=== PATIENT | female | born 1995 | race Caucasian/White ===

== ENCOUNTER 2025-01-21 16:26 | Emergency (ER) | payer MEDICAID ==
[2025-01-21] VITALS (9 sets, daily range): BP systolic 108–127; BP diastolic 73–86
[~2025-01-21] VITALS: Ht 157.5 cm; Wt 77.1 kg
[2025-01-21] MEDS ORDERED: KETOROLAC TROMETHAMINE 15 MG/ML SDV IV ONE (16:45)
[2025-01-21] MEDS ORDERED: SODIUM CHLORIDE 0.9% 1,000 ML IV ONE (16:45)
[2025-01-21] MEDS ORDERED: METOCLOPRAMIDE HCL 10 MG/2 ML SDV IV ONE (16:45)
[2025-01-21] MEDS ORDERED: DiphenhydrAMINE HCL 50 MG/ML SDV IV ONE (16:45)
[2025-01-21 17:33] LABS: BASO% 0.7 % (0-3); EOS% 1.2 % (0-8); HEMATOCRIT 34.9 % (37.0-47.0); HEMOGLOBIN 10.6 g/dl (12.0-16.0); IMMATURE GRANULOCYTES 0.3 % (0.0-5.0); LYMPH% 27.2 % (15-41); MEAN CELL VOLUME 82.1 fL CALC (80.0-100.0); MEAN CORPUSCULAR HGB 24.9 pG CALC (26.0-32.0); MEAN CORPUSCULAR HGB CONC 30.4 g/dL CAL (32.0-36.0); MONO% 11.8 % (2-13); NEUT# 4.46 thou/uL (2.00-7.15); NEUT% 58.8 % (42-76); RED BLOOD COUNT 4.25 mill/uL (4.20-5.60); RED CELL DISTRI WIDTH 15.2 % (11.5-15.5)
[2025-01-21 17:33] LABS: URINE BILIRUBIN - DIPSTICK Negative (NEGATIVE); URINE BLOOD DIPSTICK Negative (NEGATIVE); URINE GLUCOSE - DIPSTICK Negative (NEGATIVE); URINE KETONE Negative (NEGATIVE); URINE LEUK ESTERASE Negative (NEGATIVE); URINE NITRITE - DIPSTICK Negative (Negative); URINE PH 5.5 (4.5-8.0); URINE PROTEIN - DIPSTICK Negative (NEG-TRACE); URINE SPECIFIC GRAVITY 1.025; URINE UROBILINOGEN - DIPSTICK 0.2 E.U./dL (0.2)
[2025-01-21 17:34] LABS: URINE COLOR Yellow
[2025-01-21 17:50] LABS: BILIRUBIN, TOTAL 0.4 mg/dL (0.02-1.3); CREATININE 0.7 mg/dL (0.5-1.0); POTASSIUM 3.6 mmol/l (3.5-5.1); TOTAL PROTEIN 7.3 g/dL (6.3-8.2)
[2025-01-21] MEDS ORDERED: ORPHENADRINE CITRATE 30 MG/ML AMP IV ONE (18:15)
[2025-01-21] MEDS ORDERED: FIORICET PO (18:32)
== END 2025-01-21 18:49 | disposition home or self-care (01) ==
LOC: ED 16:26
PROVIDERS: Family Medicine; Nurse Practitioner
DX: G43.909 Migraine, unspecified, not intractable, without status migrainosus (principal); Q85.01 Neurofibromatosis, type 1; E03.9 Hypothyroidism, unspecified; J45.909 Unspecified asthma, uncomplicated
CPT/HCPCS: J1200; J1885; J2360; J2765